=== PATIENT | male | born 1990 | race Caucasian/White ===

== ENCOUNTER 2017-06-02 15:36 | Emergency (ER) | payer MEDICAID ==
[~2017-06-02] VITALS: Ht 188 cm; Wt 80.6 kg
[2017-06-02 15:37] VITALS: BP 117/72
[2017-06-02] MEDS ORDERED: LIDOCAINE 1%, 20ML ONE (16:08)
[2017-06-02] MEDS ORDERED: LIDOCAINE 1%, 20ML SQ ONE (16:30)
== END 2017-06-02 17:28 | disposition home or self-care (01) ==
LOC: ED 17:24
DX: L03.011 Cellulitis of right finger (principal)
CPT/HCPCS: 26011; 99284